=== PATIENT | female | born 1950 | race Caucasian/White ===

== ENCOUNTER 2020-12-13 11:54 | Inpatient (IN) | payer MEDICARE, BC ==
[~2020-12-13] VITALS: Ht 162.6 cm; Wt 90.7 kg
[2020-12-13 13:13] LABS: BASOPHILS % (AUTO) 0.6 % (0-1); EOSINOPHILS % (AUTO) 0.1 % (0-6); HEMATOCRIT 35.5 % (35.0-45.0); LYMPHOCYTES # (AUTO) 1.3 X10'3 (1.1-4.8); LYMPHOCYTES % (AUTO) 14.7 % (21-51); MEAN CORPUSCULAR HEMOGLOBIN 32.9 PG (27.0-31.0); MEAN CORPUSCULAR HGB CONC 33.9 g/dL (33.0-36.5); MEAN CORPUSCULAR VOLUME 96.9 FL (78-98); MEAN PLATELET VOLUME 10.1 FL (7.4-10.4); MONOCYTES # (AUTO) 0.4 X10'3 (0-0.9); MONOCYTES % (AUTO) 4.6 % (2-12); NEUTROPHILS # (AUTO) 6.9 X10'3 (1.8-7.7); PLATELET COUNT 225 X10'3 (140-440); RED BLOOD COUNT 3.66 X10'6 (4.20-5.60); RED CELL DISTRIBUTION WIDTH 13.5 % (11.5-14.5); WHITE BLOOD COUNT 8.6 X10'3 (4.5-11.0)
[2020-12-13 13:23] LABS: PARTIAL THROMBOPLASTIN TIME 23 SECONDS (22-32)
[2020-12-13 13:29] LABS: ALANINE AMINOTRANSFERASE 26 U/L (12-78); ALBUMIN 3.8 G/DL (3.4-5.0); ALBUMIN/GLOBULIN RATIO 1.2 (1.1-1.5); ALKALINE PHOSPHATASE 59 IU/L (46-116); ANION GAP 11 (8-16); ASPARTATE AMINO TRANSFERASE 14 U/L (10-37); BILIRUBIN,TOTAL 0.7 MG/DL (0.1-1.0); BLOOD UREA NITROGEN 55 MG/DL (7-18); CALCIUM 9.1 MG/DL (8.5-10.1); CHLORIDE 104 MMOL/L (99-107); GLUCOSE 142 MG/DL (70-104); POTASSIUM 3.5 MMOL/L (3.5-5.1); SODIUM 143 MMOL/L (135-145); TOTAL CARBON DIOXIDE 27.7 MMOL/L (24-32); TOTAL PROTEIN 7.1 G/DL (6.4-8.2)
[2020-12-13 13:39] LABS: BUN/CREATININE RATIO 76.4 (6.6-38.0); CREATININE 0.72 MG/DL (0.40-0.90); eGFR 80 ML/MIN
[2020-12-13 14:07] LABS: CLARITY,URINE CLEAR (Clear); COLOR,URINE STRAW (Yellow); GLUCOSE, URINE NEGATIVE (Neg); KETONES,URINE 15 mg/dl (Neg); LEUKOCYTE ESTERASE ,URINE NEGATIVE (Neg); NITRITES, URINE NEGATIVE (Neg); OCCULT BLOOD,URINE NEGATIVE (Neg); PROTEIN,URINE NEGATIVE (Neg); UROBILINOGEN,URINE 0.2 E.U/dL (0.2-1.0)
[2020-12-13 14:12] LABS: UA COLLECTION TYPE CLN CATCH MIDSTREAM
[2020-12-13] MEDS ORDERED: TRIA1TAB94 PO (16:03)
[2020-12-13] MEDS ORDERED: CHOL100040 PO (16:03)
[2020-12-13] MEDS ORDERED: MULT-1085 PO (16:03)
[2020-12-13] MEDS ORDERED: ATOR20TA PO (16:03)
[2020-12-13] MEDS ORDERED: potassium Cl 40MEQ/1/2NS 520ml 520 ML IV PRN ×2 (16:15)
[2020-12-13] MEDS ORDERED: morphine 2 MG/ML inj. syringe IV PRN (16:15)
[2020-12-13] MEDS ORDERED: acetaminophen 325mg tablet PO PRN ×2 (16:15)
[2020-12-13] MEDS ORDERED: HYDROcodone/acetaminophen 5mg/325mg tablet PO PRN (16:15)
[2020-12-13] MEDS ORDERED: ondansetron/PF 4mg/2ml inj IV PRN (16:15)
[2020-12-13] MEDS ORDERED: potassium Cl 20 mEq SR tablet PO PRN ×2 (16:15)
[2020-12-13] MEDS ORDERED: magnesium 2GM in 50ml NS 50 ML IV PRN (16:15)
[2020-12-13] MEDS ORDERED: magnesium 4gm in 100ml NS 100 ML IV PRN (16:15)
[2020-12-13] MEDS ORDERED: magnesium Cl slow-release 64mg tablet PO PRN (16:15)
[2020-12-13] MEDS: normal saline 1000ml 1,000 ML IV SCH (16:46)
--- NOTE | 2020-12-13 16:48 | NUR ---
mammography technician at bedside.
[2020-12-13] MEDS: heparin, porcine 5000 units/ml vial SQ SCH (20:00)
[2020-12-13] MEDS: K and/or MAG REPLACEMENT MC SCH (20:00)
[2020-12-13] MEDS: docusate sod 100mg capsule PO SCH (20:00)
[2020-12-13] MEDS ORDERED: temazepam 15mg capsule PO PRN (21:00)
[2020-12-14 01:22] LABS: ALANINE AMINOTRANSFERASE 20 U/L (12-78); ALBUMIN 3.3 G/DL (3.4-5.0); ALBUMIN/GLOBULIN RATIO 1.2 (1.1-1.5); ALKALINE PHOSPHATASE 48 IU/L (46-116); ANION GAP 5 (8-16); ASPARTATE AMINO TRANSFERASE 14 U/L (10-37); BILIRUBIN,TOTAL 0.6 MG/DL (0.1-1.0); BLOOD UREA NITROGEN 39 MG/DL (7-18); BUN/CREATININE RATIO 57.4 (6.6-38.0); CALCIUM 8.7 MG/DL (8.5-10.1); CHLORIDE 108 MMOL/L (99-107); CREATININE 0.68 MG/DL (0.40-0.90); GLUCOSE 119 MG/DL (70-104); POTASSIUM 3.1 MMOL/L (3.5-5.1); SODIUM 144 MMOL/L (135-145); TOTAL CARBON DIOXIDE 30.6 MMOL/L (24-32); TOTAL PROTEIN 6.1 G/DL (6.4-8.2); eGFR 86 ML/MIN
[2020-12-14 01:24] LABS: CHOL/HDL RATIO 2.5 (0.00-4.99); CHOLESTEROL 140 MG/DL (0-200); HDL CHOLESTEROL 55 MG/DL (35-60); LDL CHOLESTEROL 66 MG/DL (50-100); TRIGLYCERIDES 136 MG/DL (20-135)
[2020-12-14 01:40] LABS: BASOPHILS % (AUTO) 0.5 % (0-1); EOSINOPHILS # (AUTO) 0.1 X10'3 (0-0.9); EOSINOPHILS % (AUTO) 0.7 % (0-6); HEMATOCRIT 28.8 % (35.0-45.0); HEMOGLOBIN 10.1 g/dl (12.0-16.0); LYMPHOCYTES # (AUTO) 2.8 X10'3 (1.1-4.8); LYMPHOCYTES % (AUTO) 34.8 % (21-51); MEAN CORPUSCULAR HEMOGLOBIN 33.9 PG (27.0-31.0); MEAN CORPUSCULAR HGB CONC 35.2 g/dL (33.0-36.5); MEAN CORPUSCULAR VOLUME 96.3 FL (78-98); MEAN PLATELET VOLUME 9.7 FL (7.4-10.4); MONOCYTES # (AUTO) 0.6 X10'3 (0-0.9); MONOCYTES % (AUTO) 7.4 % (2-12); NEUTROPHILS # (AUTO) 4.5 X10'3 (1.8-7.7); NEUTROPHILS % (AUTO) 56.6 % (42-75); PLATELET COUNT 212 X10'3 (140-440); RED CELL DISTRIBUTION WIDTH 13.6 % (11.5-14.5)
[2020-12-14] MEDS: normal saline 1000ml 1,000 ML IV SCH (03:02)
--- NOTE | 2020-12-14 07:09 | NUR ---
mri form faxed to [facility].
[2020-12-14] MEDS ORDERED: atorvastatin 20mg tablet PO SCH (08:00)
[2020-12-14] MEDS ORDERED: triamterene/HCTZ 37.5/25mg tablet PO SCH (08:00)
[2020-12-14] MEDS: docusate sod 100mg capsule PO SCH (08:00)
[2020-12-14] MEDS: K and/or MAG REPLACEMENT MC SCH (08:00)
[2020-12-14] MEDS: heparin, porcine 5000 units/ml vial SQ SCH (08:01)
--- NOTE | 2020-12-14 08:13 | NUR ---
refused heparin.Risks and benefits explained.Dr Mary aware.
--- NOTE | 2020-12-14 09:36 | NUR ---
daughter at bedside.
--- NOTE | 2020-12-14 10:45 | NUR ---
Dr. lincoln at bedside.
[2020-12-14 12:15] VITALS: BP 140/78
--- NOTE | 2020-12-14 12:30 | NUR ---
Received report from Artur charge operator nurse on O/N.
--- NOTE | 2020-12-14 15:30 | NUR ---
Discharged patient to home with spouse. Patient ambulated to the front door on her own. Patient was alert and oriented and stable to discharge. Patient received discharge instructions and was given the opportunity to ask questions and have them answered. Patient was sent with all of her belongings and was driven home by the spouse. Patient will follow up with PCP.
[2020-12-14] MEDS ORDERED: POTA20TA10 PO (15:31)
== END 2020-12-14 16:00 | disposition home or self-care (01) | DRG 312 ==
LOC: ER 11:54 → ED HOLD 16:11 → EDBEDREQ 12-14 10:55 → ORTHO 4S 12-14 11:55
PROVIDERS: ADMIT Internal Medicine; ATTEND Internal Medicine
DX: I95.2 Hypotension due to drugs (principal); E78.5 Hyperlipidemia, unspecified; E87.6 Hypokalemia; W18.39XA Other fall on same level, initial encounter; I10 Essential (primary) hypertension; Y93.89 Activity, other specified; Y92.098 Other place in other non-institutional residence as the place of occurrence of the external cause; Y99.8 Other external cause status; Z72.89 Other problems related to lifestyle; Z71.41 Alcohol abuse counseling and surveillance of alcoholic
CPT/HCPCS: 36415; 70544; 70551; 71045; 80053; 80061; 81003; 83735; 83880; 84484; 85025; 85610; 85730; 86885; 86900; 86901; 87081; 93005; 93306; 93880; 96372; 99285; G0378; J1644; J7030

== ENCOUNTER 2024-05-03 07:15 | Day surgery (SDC) | payer MEDICARE, BC ==
[~2024-05-03] VITALS: Ht 160 cm; Wt 68.2 kg
[~2024-05-03 07:15] MED LIST: ATOR20TA PO; CHOL100040 PO; FERR-39 PO; POTA-197 PO; UBID10CA4 PO
[2024-05-03 07:39] VITALS: BP 149/60; PULSE 69; RESP 14
[2024-05-03] MEDS ORDERED: diphenhydrAMINE 50 mg/ml inj ONE (08:46)
[2024-05-03] MEDS ORDERED: LIDOcaine 2% Viscous 15ml cup ONE (08:46)
[2024-05-03] MEDS ORDERED: MIDAZolam 1 MG/ML 5ML VIAL ONE (08:46)
[2024-05-03] MEDS ORDERED: fentaNYL/PF 50MCG/1 ML 2ML syringe ONE (08:46)
[2024-05-03] MEDS ORDERED: simethicone 40mg/0.6ml oral drops 30ml ONE (09:40)
[2024-05-03 09:50] VITALS: BP 139/63; PULSE 66; RESP 21; O2SAT 100
[2024-05-03 10:00] VITALS: BP 132/61; PULSE 58; RESP 14; O2SAT 100
[2024-05-03 10:10] VITALS: BP 133/63; PULSE 58; RESP 21; O2SAT 100
[2024-05-03 10:20] VITALS: BP 116/60; PULSE 57; RESP 11; O2SAT 100
== END 2024-05-03 10:30 | disposition home or self-care (01) ==
LOC: GI LAB 07:15
PROVIDERS: ATTEND Internal Medicine Gastroenterology
DX: D50.0 Iron deficiency anemia secondary to blood loss (chronic) (principal); D12.4 Benign neoplasm of descending colon; K25.9 Gastric ulcer, unspecified as acute or chronic, without hemorrhage or perforation; K29.70 Gastritis, unspecified, without bleeding; I10 Essential (primary) hypertension; E03.9 Hypothyroidism, unspecified; E78.5 Hyperlipidemia, unspecified
CPT/HCPCS: 43239; 45385; A4620; C1889; J1200; J2250; J3010; J7030; Z7512; 99152; 99153